=== PATIENT | female | born 1990 | race Caucasian/White ===

== ENCOUNTER 2018-07-03 23:50 | Outpatient (CLI) | END 2018-07-04 03:28 | disposition home or self-care (01) ==

== ENCOUNTER 2018-07-10 19:24 | Outpatient (CLI) | END 2018-07-11 00:54 | disposition home or self-care (01) ==

== ENCOUNTER 2018-08-27 15:45 | Outpatient (CLI) | END 2018-08-27 17:35 | disposition home or self-care (01) ==

== ENCOUNTER 2018-09-10 02:20 | Inpatient (IN) | END 2018-09-12 18:51 | disposition home or self-care (01) | DRG 807 ==

== ENCOUNTER 2019-08-19 18:14 | Emergency (ER) | payer OTHER ==
[~2019-08-19] VITALS: Wt 78.0 kg
[~2019-08-19 18:14] MED LIST: ACET500C5 PO; FERR240T9 PO; IBUP800T48 PO; PNV1TABL12 PO
[2019-08-19 22:15] VITALS: BP 113/69; PULSE 77; RESP 16
== END 2019-08-19 22:16 | disposition home or self-care (01) ==
LOC: FTE 18:14
DX: O20.9 Hemorrhage in early pregnancy, unspecified (principal); R10.2 Pelvic and perineal pain; Z3A.01 Less than 8 weeks gestation of pregnancy
CPT/HCPCS: 36415; 76801; 76817; 84702; 85025; 86900; 86901